=== PATIENT | male | born 1990 | race Caucasian/White ===

== ENCOUNTER 2016-09-17 13:27 | Emergency (ER) | payer SELFPAY ==
[~2016-09-17] VITALS: Ht 180.3 cm; Wt 102.1 kg
--- NOTE | 2016-09-17 14:14 | ED Upper Extremity ---
General Chief Complaint: Upper Extremity Stated Complaint: L SHOULDER PAIN Source: patient Exam Limitations: no limitations History of Present Illness Time seen by provider: 14:10 Initial Comments To ER with left shoulder pain. This began yesterday while at work. 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 He was lifting a bag yesterday when he felt a tearing and popping sensation in his left shoulder. He went home and took an ibuprofen but an ice pack on it thinking that it would get better, however he did not and the pain is worse today certainly with any lifting movements. He is still able to use his right arm and would like a note saying that he can go back to work today Onset: just prior to arrival Severity: moderate Pain/Injury Location: left shoulder Modifying Factors: Worse With Movement Allergies and Home Medications Allergies Coded Allergies: No Known Drug Allergies (Unverified , 09/17/16) Constitutional: see HPI EENTM: see HPI Respiratory: no symptoms reported Cardiovascular: no symptoms reported Genitourinary: no symptoms reported Musculoskeletal: see HPI, joint pain Past Ichvrbo-Laqwbs-Odmvfz Hx Patient Social History Recent Foreign Travel: No Contact w/Someone Who Travel: No Physical Exam Vital Signs Capillary Refill : General Appearance: WD/WN, no apparent distress HEENT: PERRL/EOMI, normal ENT inspection Neck: non-tender, full range of motion Cardiovascular: regular rate, rhythm, no murmur Respiratory: normal breath sounds, no respiratory distress, no accessory muscle use Gastrointestinal: normal bowel sounds, non tender, soft Shoulder: normal inspection, limited ROM, pain, soft tissue tenderness, No swelling Elbow/Forearm: normal inspection, non-tender, Left Wrist: Yes normal inspection, Yes non-tender, Yes no evidence of injury Neurologic/Psychiatric: alert, normal mood/affect, oriented x 3 Skin: normal color, warm/dry Progress/Results/Core Measures Results/Orders My Orders Orders - ROMANA HORTON APRN (09/17/16 14:09) Ketorolac Injection (Toradol Injection) (09/17/16 14:15) Orphenadrine Injection (Norflex Injectio (09/17/16 14:15) Departure Impression Impression: Primary Impression: Shoulder sprain Disposition: 01 HOME, SELF-CARE Condition: Stable Departure-Patient Inst. Decision time for Depature: 14:12 Referrals: NO,LOCAL PHYSICIAN (PCP) Primary Care Physician Patient Instructions: Shoulder Sprain Add. Discharge Instructions: 1. Tylenol and Motrin for pain 2. Sling as needed for pain control 3. We will treat this as a shoulder sprain but you should keep in mind that if it is not improved significantly in 2 weeks, you should follow-up with occupational health to discuss an MRI of the shoulder to look for rotator cuff or labral injury. All discharge instructions reviewed with patient and/or family. Voiced understanding. Work/School Note: Work Release Form Date Seen in the Emergency Department: September 17, 2016 Return to Work: September 17, 2016 Other Restrictions Listed Below: No use of left arm until cleared. ROMANA HORTON APRN September 17, 2016 14:14
[2016-09-17] MEDS ORDERED: ORPHENADRINE 60 MG/2 ML (NORFLEX) AMP IM ONE (14:15)
[2016-09-17] MEDS ORDERED: KETOROLAC 60 MG/2 ML VIAL IM ONE (14:15)
--- NOTE | 2016-09-17 15:07 | Diagnostic Imaging Report ---
INDICATION: Lifting injury. Left shoulder pain. FINDINGS: 3 views of the left shoulder shows no fracture, dislocation or other abnormality. IMPRESSION: Normal left shoulder. Dictated by: Dictated on workstation # [id number]
[2016-09-17 15:15] VITALS: BP 137/81
== END 2016-09-17 15:15 | disposition home or self-care (01) ==
LOC: ER 13:30
DX: S43.402A Unspecified sprain of left shoulder joint, initial encounter (principal); X50.3XXA Overexertion from repetitive movements, initial encounter; Y92.59 Other trade areas as the place of occurrence of the external cause; Y99.0 Civilian activity done for income or pay
CPT/HCPCS: 73030; 96372; 99283